=== PATIENT | female | born 1990 | race Caucasian/White ===

== ENCOUNTER 2016-05-03 16:53 | Emergency (ER) | payer OTHER ==
[~2016-05-03] VITALS: Ht 149.9 cm; Wt 77.6 kg
[2016-05-03 19:50] VITALS: BP 112/78
== END 2016-05-03 19:51 | disposition home or self-care (01) ==
LOC: ED 16:53
DX: J32.9 Chronic sinusitis, unspecified (principal); J02.9 Acute pharyngitis, unspecified

== ENCOUNTER 2016-07-07 21:45 | Emergency (ER) | payer OTHER ==
[~2016-07-07] VITALS: Ht 149.9 cm; Wt 77.8 kg
[2016-07-08] VITALS: BP 114/75
== END 2016-07-08 | disposition home or self-care (01) ==
LOC: ED 21:45
DX: R51 Headache (principal)
CPT/HCPCS: 82962

== ENCOUNTER 2016-09-02 09:42 | Emergency (ER) | payer OTHER ==
[~2016-09-02] VITALS: Ht 149.9 cm; Wt 76.7 kg
[2016-09-02 10:54] VITALS: BP 113/62
== END 2016-09-02 10:54 | disposition home or self-care (01) ==
LOC: ED 09:42
DX: L23.9 Allergic contact dermatitis, unspecified cause (principal)
CPT/HCPCS: J7512

== ENCOUNTER 2016-09-26 08:46 | Emergency (ER) | payer OTHER ==
[2016-09-26 10:03] VITALS: BP 102/68
== END 2016-09-26 10:00 | disposition home or self-care (01) ==
LOC: ED 08:46
DX: M54.5 Low back pain (principal); K05.00 Acute gingivitis, plaque induced

== ENCOUNTER 2018-05-22 21:17 | Emergency (ER) | payer OTHER ==
[~2018-05-22] VITALS: Ht 149.9 cm; Wt 80.7 kg
[2018-05-22 21:19] VITALS: Ht 149.9 cm; Wt 80.7 kg
[2018-05-22 22:00] VITALS: BP 107/72
== END 2018-05-22 22:00 | disposition home or self-care (01) ==
LOC: ED 21:17
DX: J30.2 Other seasonal allergic rhinitis (principal)

== ENCOUNTER 2018-08-22 19:29 | Emergency (ER) | payer OTHER ==
[~2018-08-22] VITALS: Ht 149.9 cm; Wt 78.2 kg
[2018-08-22 20:19] VITALS: Ht 149.9 cm; Wt 78.2 kg
[2018-08-22 22:50] VITALS: BP 110/68
== END 2018-08-22 22:50 | disposition home or self-care (01) ==
LOC: ED 19:29
DX: T78.40XA Allergy, unspecified, initial encounter (principal); X58.XXXA Exposure to other specified factors, initial encounter
CPT/HCPCS: J2930; J7512; Q0163

== ENCOUNTER 2018-10-21 08:53 | Emergency (ER) | payer OTHER ==
[~2018-10-21] VITALS: Ht 149.9 cm; Wt 76.7 kg
[2018-10-21 09:00] VITALS: BP 104/67; Ht 149.9 cm; Wt 76.7 kg
== END 2018-10-21 11:30 | disposition left against medical advice (07) ==
LOC: ED 08:53
DX: Z53.21 Procedure and treatment not carried out due to patient leaving prior to being seen by health care provider (principal)

== ENCOUNTER 2018-12-15 17:38 | Emergency (ER) | payer OTHER ==
[~2018-12-15] VITALS: Ht 149.9 cm; Wt 79.4 kg
[2018-12-15 18:03] VITALS: Ht 149.9 cm; Wt 79.4 kg
[2018-12-15 22:09] VITALS: BP 112/80
== END 2018-12-15 22:09 | disposition home or self-care (01) ==
LOC: ED 17:38
DX: N39.0 Urinary tract infection, site not specified (principal)

== ENCOUNTER 2019-01-23 18:24 | Emergency (ER) | payer OTHER ==
[~2019-01-23] VITALS: Ht 149.9 cm; Wt 76.2 kg
[2019-01-23 18:40] VITALS: Ht 149.9 cm; Wt 76.2 kg
[2019-01-23 21:58] VITALS: BP 107/79
== END 2019-01-23 21:58 | disposition home or self-care (01) ==
LOC: ED 18:24
DX: N63.10 Unspecified lump in the right breast, unspecified quadrant (principal); N64.4 Mastodynia
CPT/HCPCS: 76641